=== PATIENT | male | born 1975 | race African-American/Black ===

== ENCOUNTER 2025-05-27 08:55 | Outpatient (CLI) | payer BC | END 2025-05-27 08:56 | disposition home or self-care (01) | LOC: CSHSLEEP 08:55 | PROVIDERS: ATTEND Family Medicine | DX: G47.33 Obstructive sleep apnea (adult) (pediatric) (principal); R53.83 Other fatigue; E66.9 Obesity, unspecified; Z68.33 Body mass index [BMI] 33.0-33.9, adult; R06.83 Snoring | CPT/HCPCS: 95811 ==